=== PATIENT | male | born 1990 | race Caucasian/White ===

== ENCOUNTER 2023-12-09 15:29 | Emergency (ER) | payer OTHER ==
[~2023-12-09] VITALS: Ht 180.3 cm; Wt 86.2 kg
[2023-12-09 18:22] VITALS: BP 140/75; TEMP 97.8; O2SAT 100
== END 2023-12-09 18:22 | disposition home or self-care (01) ==
LOC: ER 15:29
DX: S16.1XXA Strain of muscle, fascia and tendon at neck level, initial encounter (principal); S39.012A Strain of muscle, fascia and tendon of lower back, initial encounter; R51.9 Headache, unspecified; V89.2XXA Person injured in unspecified motor-vehicle accident, traffic, initial encounter; Y93.89 Activity, other specified; Y92.89 Other specified places as the place of occurrence of the external cause; Y99.8 Other external cause status
CPT/HCPCS: 70450; 72125; 72131; A4606; A4663